=== PATIENT | male | born 1985 | race Caucasian/White ===

== ENCOUNTER 2022-07-17 10:34 | Outpatient (CLI) | payer BC, MEDICAID, SELFPAY ==
--- NOTE | ~2022-07-17 | MR_ITS ---
MRI of the right elbow CLINICAL HISTORY: Pain TECHNIQUE: Proton-density and proton-density fat-sat images were acquired in the axial, coronal, and sagittal planes. FINDINGS: Ulnar collateral ligament is intact. Radial collateral ligament and the lateral ulnar colla teral ligament are intact. Common flexor tendon origin is unremarkable. No evidence for medial epicon dylitis. There is focal low-grade interstitial tearing at the origin of the common extensor tendon, a t the lateral epicondyle. Bone marrow signals are unremarkable. No definite articular abnormality of the elbow seen. No signifi cant joint effusion. Biceps, brachialis, and triceps tendons are intact. Visualized muscle signals are unremarkable. No so ft tissue mass or fluid collection evident. IMPRESSION: Low-grade interstitial tearing at the common extensor tendon origin at the lateral epicondyle of the humerus. Reviewed, dictated and finalized at [facility]. IMPRESSION: Low-grade interstitial tearing at the common extensor tendon origin at the late ral epicondyle of the humerus.
== END 2022-07-17 10:35 | disposition home or self-care (01) ==
PROVIDERS: Visit Provider Nurse Practitioner
DX: M25.521 Pain in right elbow (principal); G89.29 Other chronic pain
CPT/HCPCS: 73221